=== PATIENT | female | born 1970 | race American Indian/Alaskan Native ===

== ENCOUNTER 2020-05-09 12:11 | Emergency (ER) | payer MEDICAID ==
[2020-05-09 14:40] LABS: Basophils % (Auto) 0.7 % (0.0-1.8); Eosinophils # (Auto) 0.1 K/mm3 (0.0-0.4); Hematocrit 43.2 % (30.3-42.9); Hemoglobin 14.5 gm/dl (10.1-14.3); Lymphocytes # (Auto) 2.3 K/mm3 (1.2-5.4); Lymphocytes % (Auto) 38.5 % (13.4-35.0); Mean Corpuscular HGB Conc 34 % (30-34); Mean Corpuscular Volume 90 fl (79-97); Monocytes # (Auto) 0.4 K/mm3 (0.0-0.8); Monocytes % (Auto) 6.6 % (0.0-7.3); Platelet Count 264 K/mm3 (140-440); Red Blood Count 4.82 M/mm3 (3.65-5.03); Red Cell Distribution Width 14.2 % (13.2-15.2)
[2020-05-09 14:49] LABS: BUN/Creatinine Ratio 14; Blood Urea Nitrogen 11 mg/dL (7-17); Calcium 9.5 mg/dL (8.4-10.2); Hemolysis Index 13
[2020-05-09] MEDS ORDERED: LORazepam 2 MG TAB PO PRN ×2 (20:27)
--- NOTE | 2020-05-09 20:32 | Emergency Department Report ---
ED Psych HPI - General Chief Complaint: Psych Stated Complaint: EVALUATION Time Seen by Provider: 05/09/20 20:16 Source: patient, old records reviewed (First visit here as per [facility]) Mode of arrival: Ambulatory Limitations: No Limitations - History of Present Illness Initial Comments: 49-year female the past medical history of HIV, bipolar disorder, alcohol, crack cocaine abuse presents to the hospital complaints of suicidal ideation, depression, and drug and alcohol relapse. Patient states she was 8 years sober up until the end of March. Since she has been drinking almost daily and intermittent using crack cocaine. On Tuesday, May 16 the 5-year anniversary of her son's she attempted to overdose on 15 [id number] pain p.m. medication and a bottle of NyQuil. Patient remains depressed, tearful, and suicidal. Last suicide attempt was 25 years ago when she drank bleach. Patient lives home alone and has 4 children and 8 grandchildren in the [place] area. Patient has been noncompliant with her HIV meds and Zoloft since April 17. She states her last viral load in April was undetectable. She denies any physical complaints at this time. She states she has occasional tremors with alcohol cessation but denies a history of alcohol withdrawal seizures - Related Data Allergies Allergy/AdvReac Type Severity Reaction Status Date / Time No Known Allergies Allergy Unverified 05/09/20 13:01 ED Review of Systems ROS: Stated complaint: EVALUATION Other details as noted in HPI Comment: All other systems reviewed and negative ED Past Medical Hx - Past Medical History Previous Medical History?: Yes Hx Psychiatric Treatment: Yes ([facility]) Hx HIV: Yes Additional medical history: ALCOHOL ABUSE - Surgical History Past Surgical History?: Yes ED Physical Exam - General Limitations: No Limitations - Other Other exam information: General: No acute distress Head: Atraumatic Eyes: normal appearance ENT: Moist mucous membranes Neck: Normal appearance, no midline tenderness Chest: Clear to auscultation bilaterally CV: Regular rate and rhythm Abdomen: Soft, normal bowel sounds, nontender, nondistended, no rebound or guarding Back: Normal inspection Extremity: Normal inspection, full range of motion Neuro: Alert O x 3, no facial asymmetry, speech clear, no gross motor sensory deficit Psych: Tearful, depressed affect Skin: No rash ED Course Vital Signs 05/09/20 05/09/20 05/10/20 12:58 20:20 02:57 Temperature 98.3 F 97.8 F 98.0 F Pulse Rate 84 83 87 Respiratory 17 18 18 Rate Blood Pressure 130/74 117/74 111/65 [Left] O2 Sat by Pulse 100 98 97 Oximetry 05/10/20 05/10/20 08:04 12:30 Temperature 97 F L Pulse Rate 78 85 Respiratory 18 Rate Blood Pressure 111/74 [Left] O2 Sat by Pulse 98 99 Oximetry ED Medical Decision Making - Lab Data Result diagrams: 05/09/20 13:56 05/09/20 13:56 Lab Results 05/09/20 05/09/20 05/09/20 Range/Units 13:56 13:56 13:56 WBC (4.5-11.0) K/mm3 RBC (3.65-5.03) M/mm3 Hgb (10.1-14.3) gm/dl Hct (30.3-42.9) % MCV (79-97) fl MCH (28-32) pg MCHC (30-34) % RDW (13.2-15.2) % Plt Count (140-440) K/mm3 Lymph % (Auto) (13.4-35.0) % Leslie % (Auto) (0.0-7.3) % Eos % (Auto) (0.0-4.3) % Baso % (Auto) (0.0-1.8) % Lymph # (Auto) (1.2-5.4) K/mm3 Leslie # (Auto) (0.0-0.8) K/mm3 Eos # (Auto) (0.0-0.4) K/mm3 Baso # (Auto) (0.0-0.1) K/mm3 Seg Neutrophils % (40.0-70.0) % Seg Neutrophils # (1.8-7.7) K/mm3 Sodium 140 (137-145) mmol/L Potassium 3.9 (3.6-5.0) mmol/L Chloride 100.1 (98-107) mmol/L Carbon Dioxide 21 L (22-30) mmol/L Anion Gap 23 mmol/L BUN 11 (7-17) mg/dL Creatinine 0.8 (0.6-1.2) mg/dL Estimated GFR > 60 ml/min BUN/Creatinine Ratio 14 % Glucose 170 H (65-100) mg/dL Calcium 9.5 (8.4-10.2) mg/dL Total Bilirubin (0.1-1.2) mg/dL Direct Bilirubin (0-0.2) mg/dL Indirect Bilirubin mg/dL AST (5-40) units/L ALT (7-56) units/L Alkaline Phosphatase (35-129) units/L Total Creatine Kinase (30-135) units/L Total Protein (6.3-8.2) g/dL Albumin (3.9-5) g/dL Albumin/Globulin Ratio % Urine Color (Yellow) Urine Turbidity (Clear) Urine pH (5.0-7.0) Ur Specific [place] (1.003-1.030) Urine Protein (Negative) mg/dL Urine Glucose (UA) (Negative) mg/dL Urine Ketones (Negative) mg/dL Urine Blood (Negative) Urine Nitrite (Negative) Urine Bilirubin (Negative) Urine Urobilinogen (<2.0) mg/dL Ur Leukocyte Esterase (Negative) Urine WBC (Auto) (0.0-6.0) /HPF Urine RBC (Auto) (0.0-6.0) /HPF U Epithel Cells (Auto) (0-13.0) /HPF Urine Bacteria (Auto) (Negative) /HPF Urine Mucus /HPF Salicylates < 0.3 L (2.8-20.0) mg/dL Urine Opiates Screen Urine Methadone Screen Acetaminophen 5.0 L (10.0-30.0) ug/mL Ur Barbiturates Screen Ur Phencyclidine Scrn Ur Amphetamines Screen U Benzodiazepines Scrn Urine Cocaine Screen U Marijuana (THC) Screen Drugs of Abuse Note Plasma/Serum Alcohol (0-0.07) % 05/09/20 05/09/20 05/09/20 Range/Units 13:56 13:56 14:00 WBC 6.0 (4.5-11.0) K/mm3 RBC 4.82 (3.65-5.03) M/mm3 Hgb 14.5 H (10.1-14.3) gm/dl Hct 43.2 H (30.3-42.9) % MCV 90 (79-97) fl MCH 30 (28-32) pg MCHC 34 (30-34) % RDW 14.2 (13.2-15.2) % Plt Count 264 (140-440) K/mm3 Lymph % (Auto) 38.5 H (13.4-35.0) % Leslie % (Auto) 6.6 (0.0-7.3) % Eos % (Auto) 2.0 (0.0-4.3) % Baso % (Auto) 0.7 (0.0-1.8) % Lymph # (Auto) 2.3 (1.2-5.4) K/mm3 Leslie # (Auto) 0.4 (0.0-0.8) K/mm3 Eos # (Auto) 0.1 (0.0-0.4) K/mm3 Baso # (Auto) 0.0 (0.0-0.1) K/mm3 Seg Neutrophils % 52.2 (40.0-70.0) % Seg Neutrophils # 3.1 (1.8-7.7) K/mm3 Sodium (137-145) mmol/L Potassium (3.6-5.0) mmol/L Chloride (98-107) mmol/L Carbon Dioxide (22-30) mmol/L Anion Gap mmol/L BUN (7-17) mg/dL Creatinine (0.6-1.2) mg/dL Estimated GFR ml/min BUN/Creatinine Ratio % Glucose (65-100) mg/dL Calcium (8.4-10.2) mg/dL Total Bilirubin (0.1-1.2) mg/dL Direct Bilirubin (0-0.2) mg/dL Indirect Bilirubin mg/dL AST (5-40) units/L ALT (7-56) units/L Alkaline Phosphatase (35-129) units/L Total Creatine Kinase 167 H (30-135) units/L Total Protein (6.3-8.2) g/dL Albumin (3.9-5) g/dL Albumin/Globulin Ratio % Urine Color (Yellow) Urine Turbidity (Clear) Urine pH (5.0-7.0) Ur Specific [place] (1.003-1.030) Urine Protein (Negative) mg/dL Urine Glucose (UA) (Negative) mg/dL Urine Ketones (Negative) mg/dL Urine Blood (Negative) Urine Nitrite (Negative) Urine Bilirubin (Negative) Urine Urobilinogen (<2.0) mg/dL Ur Leukocyte Esterase (Negative) Urine WBC (Auto) (0.0-6.0) /HPF Urine RBC (Auto) (0.0-6.0) /HPF U Epithel Cells (Auto) (0-13.0) /HPF Urine Bacteria (Auto) (Negative) /HPF Urine Mucus /HPF Salicylates (2.8-20.0) mg/dL Urine Opiates Screen Urine Methadone Screen Acetaminophen (10.0-30.0) ug/mL Ur Barbiturates Screen Ur Phencyclidine Scrn Ur Amphetamines Screen U Benzodiazepines Scrn Urine Cocaine Screen U Marijuana (THC) Screen Drugs of Abuse Note Plasma/Serum Alcohol < 0.01 (0-0.07) % 05/09/20 05/09/20 05/09/20 Range/Units 20:16 Unknown Unknown WBC (4.5-11.0) K/mm3 RBC (3.65-5.03) M/mm3 Hgb (10.1-14.3) gm/dl Hct (30.3-42.9) % MCV (79-97) fl MCH (28-32) pg MCHC (30-34) % RDW (13.2-15.2) % Plt Count (140-440) K/mm3 Lymph % (Auto) (13.4-35.0) % Leslie % (Auto) (0.0-7.3) % Eos % (Auto) (0.0-4.3) % Baso % (Auto) (0.0-1.8) % Lymph # (Auto) (1.2-5.4) K/mm3 Leslie # (Auto) (0.0-0.8) K/mm3 Eos # (Auto) (0.0-0.4) K/mm3 Baso # (Auto) (0.0-0.1) K/mm3 Seg Neutrophils % (40.0-70.0) % Seg Neutrophils # (1.8-7.7) K/mm3 Sodium (137-145) mmol/L Potassium (3.6-5.0) mmol/L Chloride (98-107) mmol/L Carbon Dioxide (22-30) mmol/L Anion Gap mmol/L BUN (7-17) mg/dL Creatinine (0.6-1.2) mg/dL Estimated GFR ml/min BUN/Creatinine Ratio % Glucose (65-100) mg/dL Calcium (8.4-10.2) mg/dL Total Bilirubin 0.20 (0.1-1.2) mg/dL Direct Bilirubin < 0.2 (0-0.2) mg/dL Indirect Bilirubin 0.0 mg/dL AST 29 (5-40) units/L ALT 27 (7-56) units/L Alkaline Phosphatase 89 (35-129) units/L Total Creatine Kinase (30-135) units/L Total Protein 7.1 (6.3-8.2) g/dL Albumin 4.3 (3.9-5) g/dL Albumin/Globulin Ratio 1.5 % Urine Color Yellow (Yellow) Urine Turbidity Slightly-cloudy (Clear) Urine pH 5.0 (5.0-7.0) Ur Specific Steen 1.031 H (1.003-1.030) Urine Protein 30 mg/dl (Negative) mg/dL Urine Glucose (UA) Neg (Negative) mg/dL Urine Ketones Tr (Negative) mg/dL Urine Blood Neg (Negative) Urine Nitrite Neg (Negative) Urine Bilirubin Neg (Negative) Urine Urobilinogen 4.0 (<2.0) mg/dL Ur Leukocyte Esterase Tr (Negative) Urine WBC (Auto) 3.0 (0.0-6.0) /HPF Urine RBC (Auto) 1.0 (0.0-6.0) /HPF U Epithel Cells (Auto) 14.0 H (0-13.0) /HPF Urine Bacteria (Auto) 1+ (Negative) /HPF Urine Mucus 2+ /HPF Salicylates (2.8-20.0) mg/dL Urine Opiates Screen Presumptive negative Urine Methadone Screen Presumptive negative Acetaminophen (10.0-30.0) ug/mL Ur Barbiturates Screen Presumptive negative Ur Phencyclidine Scrn Presumptive negative Ur Amphetamines Screen Presumptive negative U Benzodiazepines Scrn Presumptive negative Urine Cocaine Screen Presumptive positive U Marijuana (THC) Screen Presumptive positive Drugs of Abuse Note Disclamer Plasma/Serum Alcohol (0-0.07) % - Medical Decision Making Patient patient presents to the hospital with depression, suicidal ideation, and cocaine alcohol abuse with suicidal ideation. Patient states she attempted overdose several days ago. She is currently alert without any physical symptoms. Vital signs and labs unremarkable. UDS positive for cocaine and marijuana. Initial alcohol level is 0 without any signs of tremor. CIWA protocol initiated. 1013 has been signed. Patient is medically cleared for psychiatric evaluation as per medical record review on 05/14, pt was d/nicholas home on 05/10 Critical Care Time: No Critical care attestation.: If time is entered above; I have spent that time in minutes in the direct care of this critically ill patient, excluding procedure time. ED Disposition Clinical Impression: Suicidal ideation, Cocaine abuse, Alcohol abuse, Marijuana abuse, Suicide attempt by drug overdose, Medical clearance for psychiatric admission, Depression, Noncompliance with medication regimen, HIV positive Disposition: [id number] PSY HOSP/PSY UNIT Is pt being admited?: No Condition: Stable Additional Instructions: OUTPATIENT MENTAL HEALTH RESOURCES [facility], [facility] Satish Vital MD: [address] [place] [address] [place] [address] [place] [facility]: [facility] [address] [place] [address] [place] [address] [phone] [facility]: [facility] Healthcare: [address] [place] [address] [facility] [id number] [place] [facility]: Nba Daigle MD: [id number] [facility] [id number] [facility]: [address] [address] [phone] ID CRISIS AND ACCESS LINE: Referrals: PRIMARY CAREMD [Primary Care Provider] - 3-5 Days
[2020-05-09 20:36] LABS: Alanine Aminotransferase 27 units/L (7-56); Albumin 4.3 g/dL (3.9-5)
[2020-05-09 20:43] LABS: Bilirubin,Direct < 0.2 mg/dL (0-0.2)
[2020-05-09 21:53] LABS: Amphetamine Screen,Urine PRESUMPTIVE NEGATIVE; Benzodiazepines Screen,Urine PRESUMPTIVE NEGATIVE; Cannabinoid Screen,Urine PRESUMPTIVE POSITIVE; Cocaine Screen,Urine PRESUMPTIVE POSITIVE; Methadone Screen,Urine PRESUMPTIVE NEGATIVE; Opiate Screen,Urine PRESUMPTIVE NEGATIVE
[2020-05-09 21:58] LABS: Bacteria,Urine 1+ /HPF (Negative); Bilirubin,Urine NEG (Negative); Blood,Urine NEG (Negative); Color,Urine Yellow (Yellow); Mucus,Urine 2+ /HPF
[2020-05-10 08:05] VITALS: BP 111/74
--- NOTE | 2020-05-10 13:22 | Consultation ---
History of Present Illness - Reason for Consult Consult date: 05/10/20 Reason for consult: MHE Requesting physician: SUSY KRAUS - History of Present Psychiatric Illness Per ED Provider: 49-year female the past medical history of HIV, bipolar disorder, alcohol, crack cocaine abuse presents to the hospital complaints of suicidal ideation, depression, and drug and alcohol relapse. Patient states she was 8 years sober up until the end of March. Since she has been drinking almost daily and intermittent using crack cocaine. On May 16 the 5-year anniversary of her son's she attempted to overdose on 15 [id number] pain p.m. medication and a bottle of NyQuil. Patient remains depressed, tearful, and suicidal. Last suicide attempt was 25 years ago when she drank bleach. Patient lives home alone and has 4 children and 8 grandchildren in the [place] area. Patient has been noncompliant with her HIV meds and Zoloft since April 17. She states her last viral load in April was undetectable. She denies any physical complaints at this time. She states she has occasional tremors with alcohol cessation but denies a history of alcohol withdrawal seizures Per [facility]: Pt is a 49 year old AA female; Per triage note, "SI/HI, ATTEMPTED TUESDAY TOOK 15 PAIN PILLS."Pt carries a diagnosis of Bipolar Disorder. Pt is prescribed Zoloft and Wellbutin, but pt has not been compliant with the medications since Apr 17 when she began using substances. Pt reports one inpatient psyc admission over 20 years ago at [facility] after a suicide attempt.Pt reports that she began using April 17, 2020 after 8 years sober. Pt reports trigger as the ending of a relationship. Pt has been drinking, "about a quart of malt liquor a day since April 17." with last drink yesterday. Pt has used $2,800 of crack since April 17 also. Pt reports no withdrawal symptoms if she does not drink. Pt endorses active SI with recent overdose attempt on Thursday May 07, 2020. "I took 15 Tylenol PM and drank Nyquil. I put curtains over the windows and a chair at the door. I don't know why God let me live. I'm in this dark hole I can't get out of." Pt explained she has guilt regarding relapsing after 8 years clean, the anniversary of her son's and a breakup as the triggers. Pt is tearful throughout assessment.Pt is alert and oriented x 4. Pt is depressed with tearful affect. Pt reports command AH to harm self. Pt denies any thoughts or plans to harm others. Pt was calm and cooperative throughout assessment; no aggression.Pt resides in her own home with her 9 year old grand daughter who she is raising after her son from cancer May 06, 2015. PSYCH HPI Patient is a 49-year-old with children, currently lives with self unemployed currently on SSI a past psychiatric history of bipolar, depression and substance abuse past medical history of HIV and hypertension who presents to the ED with complaints of drug relapse depression and suicidal attempt. Patient reports she has been clean after using crack and cocaine including alcohol for 8 years up until March when she relapsed, report going for woman's trip in April, has been drinking and doing drug while she was at home on 06 May which appears to be the day of her concerns that anniversary she drank a little bit more and took some NyQuil and some blood pressure medication due to feeling very depressed attempting to commit suicide. She reports since the incident she has been thinking about it and feels she needs to go clean again off the drugs and is why she presented to the emergency room for that she can be placed in a drug rehab facility that is more long-term but instead she reports was placed on 1012 because she had told the provider about what happened on tuesday. Patient reports since being here she has been currently in the rehab resources, was able to get into [facility] and was told she come there when discharged from [facility]. Patient reports calling her sponsor Malou Mayers who has agreed to take patient to the program. Patient denies any active suicidal thoughts auditory visual hallucinations. PAST PSYCHIATRIC HISTORY Diagnoses: Depression, bipolar and substance use dependence Suicide attempts or Self-harm behavior: Yes Prior psychiatric hospitalizations: Yes Substance Abuse history: Cocaine, alcohol Previous psychiatric medications tried: yes Outpatient treatment: Yes PAST MEDICAL HISTORY: HTN, HIV Family Psychiatric History: None reported or documented SOCIAL HISTORY Marital Status: Living Arrangements: with self Employment Status: [employer] Access to guns/weapons: none reported Education:High school History of Abuse: none Legal History: yes REVIEW OF SYSTEMS Constitutional: Negative for weight loss ENT: Negative for stridor Respiratory: Negative for cough or hemoptysis All other systems reviewed and are negative MENTAL STATUS EXAMINATION General Appearance and Behavior: Age appropriate, good hygiene, wearing appropriate clothes, lying in bed, good eye contact, cooperative polite with questioning. Cooperation: Participating/engaged Psychomotor Behavior: unremarkable and within normal limits Mood: Good, Affect and affective range: congruent with mood Thought Process: Fluent/Logical Thought Content: , Helplessness, Speech: Normal volume, Regular rate and rhythm Intellectual Functioning: Average Suicidal Ideation: Denies SI Homicidal Ideation: Denies HI Impulse Control: unimpaired Insight and Judgment: Limited insight and judgment Memory: Normal Attention: Normal Orientation: Alert, oriented, Assessment and Plan - Psychiatric problem (1) Dysfunctional grieving Current Visit: Yes Status: Acute (2) Cocaine abuse Current Visit: Yes Status: Acute (3) Depression Current Visit: Yes Status: Acute Treatment Plan MEDICATIONS: Risks, benefits and alternatives of medications discussed with the patient, questions answered and consent obtained from patient. PSYCHOTHERAPY: Supportive psychotherapy provided MEDICAL: Per primary team DELIRIUM PRECAUTIONS: Please re-orient patient frequently, keep lights on during the day, and minimize benzodiazepines and opiates as these medications could worsen patient's confusion. DOUGH MOLDER: DISPOSITION: Do Not Recommend acute inpatient psychiatric hospitalization at this time. Safety discharge to [facility] LEGAL STATUS: 1013 rescinded FOLLOW-UP: Will sign off Thank you for the consult. Please contact with any questions and/or concerns. Medications and Allergies Allergies Allergy/AdvReac Type Severity Reaction Status Date / Time No Known Allergies Allergy Unverified 05/09/20 13:01 Active Meds: Active Medications Lorazepam (Ativan) 2 mg PO Q1HR PRN PRN Reason: CIWA-Ar 8-15 Lorazepam (Ativan) 4 mg PO Q1HR PRN PRN Reason: CIWA-Ar 16-25 Mental Status Exam - Vital signs Last Vital Signs Temp 97 F L 05/10/20 08:04 Pulse 85 05/10/20 12:30 Resp 18 05/10/20 08:04 BP 111/74 05/10/20 08:04 Pulse Ox 99 05/10/20 12:30 Results Result Diagrams: 05/09/20 13:56 05/09/20 13:56 Abnormal lab results 05/09/20 05/09/20 05/09/20 Range/Units 13:56 13:56 13:56 Hgb (10.1-14.3) gm/dl Hct (30.3-42.9) % Lymph % (Auto) (13.4-35.0) % Carbon Dioxide 21 L (22-30) mmol/L Glucose 170 H (65-100) mg/dL Total Creatine Kinase (30-135) units/L Ur Specific [place] (1.003-1.030) U Epithel Cells (Auto) (0-13.0) /HPF Salicylates < 0.3 L (2.8-20.0) mg/dL Acetaminophen 5.0 L (10.0-30.0) ug/mL 05/09/20 05/09/20 05/09/20 Range/Units 13:56 14:00 Unknown Hgb 14.5 H (10.1-14.3) gm/dl Hct 43.2 H (30.3-42.9) % Lymph % (Auto) 38.5 H (13.4-35.0) % Carbon Dioxide (22-30) mmol/L Glucose (65-100) mg/dL Total Creatine Kinase 167 H (30-135) units/L Ur Specific [place] 1.031 H (1.003-1.030) U Epithel Cells (Auto) 14.0 H (0-13.0) /HPF Salicylates (2.8-20.0) mg/dL Acetaminophen (10.0-30.0) ug/mL All other labs normal. Assessment and Plan - Psychiatric problem (1) Dysfunctional grieving Current Visit: Yes Status: Acute (2) Cocaine abuse Current Visit: Yes Status: Acute (3) Depression Current Visit: Yes Status: Acute
== END 2020-05-10 14:23 ==
LOC: ED 12:11
DX: T65.892A Toxic effect of other specified substances, intentional self-harm, initial encounter (principal); F32.89 Other specified depressive episodes; F14.10 Cocaine abuse, uncomplicated; F12.10 Cannabis abuse, uncomplicated; Z20.828 Contact with and (suspected) exposure to other viral communicable diseases; Y92.89 Other specified places as the place of occurrence of the external cause
CPT/HCPCS: 36415; 80048; 80076; 80307; 81001; 82550; 85025; 99284; U0003; 80320; G0480